=== PATIENT | female | born 1985 | race Caucasian/White ===

== ENCOUNTER 2016-04-29 04:10 | Inpatient (IN) | payer SELFPAY ==
[2016-04-29] MEDS: LACTATED RINGERS 1,000 ML IV SCH ×4 (04:30→17:45)
[2016-04-29] MEDS ORDERED: SODIUM CHLORIDE 0.9% 50 ML 25 ML IV PRN (05:08)
[2016-04-29] MEDS ORDERED: CITRIC ACID/SODIUM CITRATE SOL PO SCH (05:15)
[2016-04-29] MEDS ORDERED: ONDANSETRON HCL 4 MG/2 ML SOL ONE (05:35)
[2016-04-29] MEDS ORDERED: METOCLOPRAMIDE HYDROCHLORIDE 5 MG/ML SOL ONE (05:35)
[2016-04-29] MEDS ORDERED: OXYTOCIN 10000 MU/ML SOL ONE (05:35)
[2016-04-29] MEDS ORDERED: PHENYLEPHRINE HYDROCHLORIDE 10 MG/ML SOL ONE (05:36)
[2016-04-29] MEDS ORDERED: HYDROMORPHONE HCL 2 MG/ML 1 ML SOL ONE (05:39)
[2016-04-29] MEDS ORDERED: HYDRALAZINE HYDROCHLORIDE 20 MG/ML SOL ONE (05:40)
[2016-04-29] MEDS ORDERED: EPHEDRINE SULFATE 50 MG/ML SOL ONE (06:24)
[2016-04-29] MEDS ORDERED: CEFAZOLIN SODIUM 1 GM PDS IV ONE (06:30)
[2016-04-29] MEDS ORDERED: LACTATED RINGERS 1,000 ML with OXYTOCIN 10000 MU/ML 20 MU IV ONE (06:43)
[2016-04-29] MEDS ORDERED: DIPHENHYDRAMINE 25 MG CAP PO PRN (07:35)
[2016-04-29] MEDS ORDERED: BISACODYL 10 MG SUP PR PRN (07:35)
[2016-04-29] MEDS ORDERED: WITCH HAZEL 1 EA PAD TOP PRN (07:35)
[2016-04-29] MEDS ORDERED: BENZOCAINE/MENTHOL 1 SPR TOP PRN (07:35)
[2016-04-29] MEDS ORDERED: KETOROLAC TROMETHAMINE 30 MG/ML SOL IV PRN (07:35)
[2016-04-29] MEDS ORDERED: TEMAZEPAM 15MG 15 MG CAP PO PRN (07:35)
[2016-04-29] MEDS ORDERED: METHYLERGONOVINE MALEATE 0.2 MG TAB PO PRN (07:35)
[2016-04-29] MEDS ORDERED: ONDANSETRON HCL 4 MG/2 ML SOL IV PRN (07:35)
[2016-04-29] MEDS ORDERED: FLEET ENEMA PR PRN (07:35)
[2016-04-29] MEDS: CEFAZOLIN SODIUM 1 GM PDS 1 GM in SODIUM CHLORIDE 0.9% 100 ML 100 ML IV SCH ×2 (09:25→12:53)
[2016-04-29 09:36] LABS: APPEARANCE,URINE Clear; BILIRUBIN,URINE NEGATIVE (NEGATIVE); COLOR,URINE Light yellow; GLUCOSE, URINE (UA) NEGATIVE (NEGATIVE); KETONES,URINE NEGATIVE (NEGATIVE); LEUKOCYTE ESTERASE ,URINE NEGATIVE (NEGATIVE); NITRATE,URINE NEGATIVE (NEGATIVE); OCCULT BLOOD,URINE TRACE INTACT (NEG-TRACE); UROBILINOGEN,URINE 0.2 (0.2-1.0 EU)
[2016-04-29] MEDS: APAP/HYDROCODONE 325/5 TAB PO PRN ×2 (09:42→19:11)
[2016-04-29 09:56] LABS: RBC,URINE 0-1 (0-3AV/HPF); WBC,URINE 0-1 (0-5AV/HPF)
[2016-04-29] MEDS: DOCUSATE SODIUM 100 MG SGL PO SCH ×2 (10:27→20:12)
[2016-04-29] MEDS ORDERED: CEFAZOLIN SODIUM 1 GM PDS ONE (12:35)
[2016-04-29] MEDS: IBUPROFEN 600 MG TAB PO PRN ×2 (16:20→22:31)
[2016-04-30] MEDS: LACTATED RINGERS 1,000 ML IV SCH ×2 (00:15→08:15)
[2016-04-30] MEDS: APAP/HYDROCODONE 325/5 TAB PO PRN ×4 (01:18→20:32)
[2016-04-30] MEDS: IBUPROFEN 600 MG TAB PO PRN ×3 (05:25→20:33)
[2016-04-30] MEDS: DOCUSATE SODIUM 100 MG SGL PO SCH ×2 (08:37→20:33)
[2016-04-30 22:41] VITALS: RESP 16
[2016-05-01] MEDS: APAP/HYDROCODONE 325/5 TAB PO PRN ×2 (03:22→08:24)
[2016-05-01] MEDS: DOCUSATE SODIUM 100 MG SGL PO SCH (08:24)
[2016-05-01 08:27] VITALS: BP 111/74; PULSE 70; TEMP 98.4; O2SAT 100
== END 2016-05-01 10:40 | disposition home or self-care (01) | DRG 766 ==
LOC: OB 04:10 → OBSVTOIN 04:10
PROVIDERS: ADMIT Family Medicine; ATTEND Family Medicine
PROC: 0UB70ZZ Excision of Bilateral Fallopian Tubes, Open Approach (ICD-10-PCS; 2016-04-29)
PROC: 10D00Z1 Extraction of Products of Conception, Low, Open Approach (ICD-10-PCS; principal; 2016-04-29 06:00)
DX: O34.219 Maternal care for unspecified type scar from previous cesarean delivery (principal); Z30.2 Encounter for sterilization; Z3A.39 39 weeks gestation of pregnancy; Z37.0 Single live birth
CPT/HCPCS: 36415; 59025; 81001; 85018; 99001; 99070; J0360; J0690; J1170; J2405; J2590; J2765